=== PATIENT | male | born 1990 | race American Indian/Alaskan Native ===

== ENCOUNTER 2017-03-12 16:06 | Emergency (ER) | payer OTHER ==
[2017-03-12] MEDS ORDERED: DILAUDID IV ONE (17:06)
[2017-03-12] MEDS ORDERED: ZOFRAN IV ONE (17:06)
[2017-03-12] MEDS ORDERED: TORADOL IV ONE (17:06)
[2017-03-12] MEDS ORDERED: NACL 0.9% 1000 ML 1,000 ML IV ONE (17:06)
--- NOTE | 2017-03-12 17:07 | Emergency Department Report ---
ED General Adult HPI - General Chief complaint: Abdominal Pain Stated complaint: RT FLANK PAIN/POSS STONE Time Seen by Provider: 03/12/17 17:01 Source: patient, EMS (ems notes not available at time of chart dictation), RN notes reviewed Mode of arrival: Stretcher Limitations: No Limitations - History of Present Illness Initial comments: This is a 26-year-old male. He is previously unknown to me. He has a past medical history of kidney stones. His last episode of renal colic was in 2011. He presents to the ER with right flank pain. There is no trauma. No vomiting. No fevers or chills. No chest pain or shortness of breath. No right lower quadrant pain. No testicular pain. No irritative urinary symptoms. He reports his symptoms are similar to prior episodes of renal colic. The pain is sharp, and has no exacerbating or relieving factors. He indicates the pain does not radiate anywhere. There is no leg pain. There is no leg swelling. No recent trips greater than 4 hours. No recent hospital admissions. Patient describes complete unlimited exercise tolerance. -: Gradual Location: back, abdomen Quality: aching Consistency: constant Improves with: none Worsens with: none Associated Symptoms: denies: confusion, chest pain, cough, diaphoresis, fever/ chills, headaches, loss of appetite, malaise, shortness of breath, syncope, weakness - Related Data Previous Rx's Medication Instructions Recorded Last Taken Type Ketorolac [Toradol] 10 mg PO Q6H PRN #20 tablet 03/12/17 Unknown Rx Ondansetron [Zofran Odt] 4 mg PO QID PRN #20 tab.rapdis 03/12/17 Unknown Rx Tamsulosin [Flomax] 0.4 mg PO QDAY #30 cap 03/12/17 Unknown Rx oxyCODONE [Roxicodone] 5 mg PO Q6HR PRN #15 tablet 03/12/17 Unknown Rx Allergies Allergy/AdvReac Type Severity Reaction Status Date / Time No Known Allergies Allergy Unverified 03/12/17 16:20 ED Review of Systems ROS: Stated complaint: RT FLANK PAIN/POSS STONE Other details as noted in HPI Constitutional: denies: fever Eyes: denies: vision change ENT: denies: epistaxis Respiratory: denies: cough Cardiovascular: denies: chest pain Gastrointestinal: abdominal pain Genitourinary: as per HPI. denies: testicular pain Musculoskeletal: back pain Skin: denies: lesions Neurological: denies: headache, weakness ED Past Medical Hx - Past Medical History Previous Medical History?: Yes Hx Kidney Stones: Yes - Surgical History Past Surgical History?: No - Social History Smoking Status: Current Every Day Smoker Substance Use Type: None - Medications Home Medications: Home Medications Medication Instructions Recorded Confirmed Last Taken Type Ketorolac [Toradol] 10 mg PO Q6H PRN #20 tablet 03/12/17 Unknown Rx Ondansetron [Zofran Odt] 4 mg PO QID PRN #20 tab.rapdis 03/12/17 Unknown Rx Tamsulosin [Flomax] 0.4 mg PO QDAY #30 cap 03/12/17 Unknown Rx oxyCODONE [Roxicodone] 5 mg PO Q6HR PRN #15 tablet 03/12/17 Unknown Rx ED Physical Exam - General Limitations: No Limitations General appearance: alert, in distress - Head Head exam: Present: atraumatic, normocephalic - Eye Eye exam: Present: normal appearance, EOMI. Absent: nystagmus - ENT ENT exam: Present: normal exam, normal orophraynx, mucous membranes moist, normal external ear exam - Neck Neck exam: Present: normal inspection, full ROM. Absent: tenderness, meningismus - Respiratory Respiratory exam: Present: normal lung sounds bilaterally. Absent: respiratory distress, wheezes, rales, rhonchi, stridor, chest wall tenderness, accessory muscle use, decreased breath sounds, prolonged expiratory - Cardiovascular Cardiovascular Exam: Present: regular rate, normal rhythm, normal heart sounds. Absent: bradycardia, tachycardia, irregular rhythm, systolic murmur, diastolic murmur, rubs, gallop - GI/Abdominal GI/Abdominal exam: Present: soft, normal bowel sounds. Absent: distended, tenderness, guarding, rebound, rigid, pulsatile mass - Rectal Rectal exam: Present: deferred - Extremities Exam Extremities exam: Present: normal inspection, full ROM, normal capillary refill. Absent: tenderness, pedal edema, joint swelling, calf tenderness - Back Exam Back exam: Present: normal inspection, full ROM, paraspinal tenderness. Absent : tenderness, CVA tenderness (R), CVA tenderness (L), muscle spasm - Neurological Exam Neurological exam: Present: alert, oriented X3, normal gait, other (Extraocular movements intact. Tongue midline. No facial droop. Facial sensation intact to light touch in the V1, V2, V3 distribution bilaterally. 5 and 5 strength in 4 extremities.. Sensation is intact to light touch in 4 extremities.). Absent : motor sensory deficit - Psychiatric Psychiatric exam: Present: normal affect, normal mood - Skin Skin exam: Present: warm, dry, intact, normal color. Absent: rash ED Course Vital Signs 03/12/17 03/12/17 16:18 17:16 Temperature 98.3 F Pulse Rate 65 78 Respiratory 18 18 Rate Blood Pressure 135/79 Blood Pressure 111/75 [Left] O2 Sat by Pulse 100 100 Oximetry - Reevaluation(s) Reevaluation #1: 03/12/17 17:13 Differential diagnosis: Renal colic, urinary tract infection, pancreatitis, hepatitis Assessment and plan: 26-year-old male with flank pain, reported history of renal colic. He indicates that these symptoms feel similar to prior episodes of renal colic. He appears somewhat uncomfortable. He denies testicular pain. There are no pulmonary and blister DVT risk factors, he is low risk by was criteria, he has perc negative. Given the young age, classic history, the patient will be treated symptomatically. He was originally given Toradol by EMS. He still having pain after hydromorphone, we will obtain a noncontrast CT scan of the abdomen and pelvis. Reevaluation #2: 03/12/17 18:46 Patient reassessed multiple times by me while in the emergency department. He feels much improved after pain medication. He is tolerating liquid feeds. Urinalysis not consistent with urinary tract infection, but suggestive of renal colic. Patient will be discharged with pain medication, nausea medication, tamsulosin, instructions to follow up with outpatient urology. Return precautions were extensively reviewed. Reevaluation #3: 03/12/17 19:10 just prior to discharge, the patient stated that he is having intermittent dizziness when he bends over, this has been happening for months. His repeat neurologic examination is unremarkable. Extraocular movements intact. Tongue midline. No facial droop. Facial sensation intact to light touch in the V1, V2, V3 distribution bilaterally. 5 and 5 strength in 4 extremities.. Sensation is intact to light touch in 4 extremities. Gait within normal limits. There is no pass pointing, there is normal heel to guallpa, there is negative pronator drift, there is negative Romberg. EKG was unremarkable. The patient can follow-up with his primary care doctor about this, this is most likely vagal or orthostatic. ED Medical Decision Making - Lab Data Result diagrams: 03/12/17 17:22 03/12/17 17:22 Vital Signs 03/12/17 16:18 Temperature 98.3 F Pulse Rate 65 Respiratory 18 Rate Blood Pressure 135/79 O2 Sat by Pulse 100 Oximetry - EKG Data -: EKG Interpreted by Me EKG shows normal: sinus rhythm, axis, intervals, QRS complexes, ST-T waves - EKG Data Interpretation: normal EKG Critical care attestation.: If time is entered above; I have spent that time in minutes in the direct care of this critically ill patient, excluding procedure time. ED Disposition Clinical Impression: Acute flank pain, Hematuria Disposition: DISCHARGED TO HOME OR SELFCARE Is pt being admited?: No Does the pt Need Aspirin: No Condition: Stable Instructions: Renal Colic (ED) Additional Instructions: Take the pain medication, nausea medication as directed. If taking oxycodone, do not drive, consume alcohol, or make important decisions. Follow up with the listed urology specialist within the next 7-10 days. Return to the ER right away with new pain, worsened pain, migration of pain, fevers or chills, intractable nausea or vomiting or inability to tolerate liquid feeds. Dr. Sierra is a local urology specialist. Prescriptions: Ketorolac [Toradol] 10 mg PO Q6H PRN #20 tablet PRN Reason: Pain Ondansetron [Zofran Odt] 4 mg PO QID PRN #20 tab.rapdis PRN Reason: Nausea oxyCODONE [Roxicodone] 5 mg PO Q6HR PRN #15 tablet PRN Reason: Pain Tamsulosin [Flomax] 0.4 mg PO QDAY #30 cap Referrals: PRIMARY CARE, [Primary Care Provider] - 3-5 Days EZRA SIERRA MD [Staff Physician] - 3-5 Days Forms: Work/School Release Form(ED)
[2017-03-12 17:17] VITALS: BP 111/75
[2017-03-12 17:38] LABS: Hemoglobin 12.9 gm/dl (11.8-15.2); Mean Corpuscular HGB Conc 31 % (32-34); Mean Corpuscular Volume 75 fl (84-94); Platelet Count 200 K/mm3 (140-440); Red Blood Count 5.49 M/mm3 (3.65-5.03); Red Cell Distribution Width 14.9 % (13.2-15.2); White Blood Count 12.8 K/mm3 (4.5-11.0)
[2017-03-12 17:54] LABS: Mean Corpuscular Hemoglobin 23 pg (28-32)
[2017-03-12 18:03] LABS: Alanine Aminotransferase 16 units/L (7-56); Albumin 4.4 g/dL (3.9-5); Albumin/Globulin Ratio 1.5 %; Alkaline Phosphatase 58 units/L (35-129); Anion Gap 16 mmol/L; BUN/Creatinine Ratio 11.81; Blood Urea Nitrogen 13 mg/dL (9-20); Calcium 9.3 mg/dL (8.4-10.2); Carbon Dioxide 28 mmol/L (22-30); Chloride 100.9 mmol/L (98-107); Glucose 91 mg/dL (75-100); Lipase 19 units/L (13-60); Potassium 4.8 mmol/L (3.6-5.0); Sodium 140 mmol/L (137-145); Total Protein 7.3 g/dL (6.3-8.2)
[2017-03-12 18:10] LABS: Bilirubin,Direct < 0.2 mg/dL (0-0.2); Bilirubin,Indirect 0.1 mg/dL
[2017-03-12 18:25] LABS: Bilirubin,Urine NEG (Negative); Blood,Urine MOD (Negative); Ketones,Urine NEG (Negative); Leukocyte Esterase,Urine TR (Negative); Mucus,Urine 2+ /HPF; Nitrite,Urine NEG (Negative)
== END 2017-03-12 19:25 | disposition home or self-care (01) ==
LOC: ED 16:06
DX: R31.9 Hematuria, unspecified (principal); R10.9 Unspecified abdominal pain; F17.200 Nicotine dependence, unspecified, uncomplicated
CPT/HCPCS: 36415; 80048; 80074; 81001; 83690; 85027; 93005; 93010; 96374; 96375; 99284; J1170; J2405; J7030

== ENCOUNTER 2017-05-20 22:04 | Emergency (ER) | payer OTHER ==
[2017-05-20 23:25] LABS: Eosinophils % (Auto) 0.2 % (0.0-4.3); Hematocrit 41.1 % (35.5-45.6); Hemoglobin 12.9 gm/dl (11.8-15.2); Mean Corpuscular HGB Conc 31 % (32-34); Mean Corpuscular Volume 76 fl (84-94); Platelet Count 173 K/mm3 (140-440); Red Blood Count 5.44 M/mm3 (3.65-5.03); Red Cell Distribution Width 15.3 % (13.2-15.2); White Blood Count 7.3 K/mm3 (4.5-11.0)
[2017-05-20 23:30] LABS: Mean Corpuscular Hemoglobin 24 pg (28-32)
[2017-05-20 23:43] LABS: Anion Gap 17 mmol/L; Blood Urea Nitrogen 11 mg/dL (9-20); Calcium 9.5 mg/dL (8.4-10.2); Carbon Dioxide 28 mmol/L (22-30); Chloride 97.2 mmol/L (98-107); Creatine Kinase 133 units/L (55-170); Glucose 94 mg/dL (75-100); Potassium 3.9 mmol/L (3.6-5.0); Sodium 138 mmol/L (137-145)
[2017-05-21] LABS: Bilirubin,Urine NEG (Negative); Blood,Urine NEG (Negative); Ketones,Urine NEG (Negative); Leukocyte Esterase,Urine NEG (Negative); Mucus,Urine FEW /HPF; Nitrite,Urine NEG (Negative); Protein,Urine <15 mg/dL mg/dL (Negative); Urobilinogen,Urine < 2.0 mg/dL (<2.0)
[2017-05-21 00:55] VITALS: BP 135/85
[2017-05-21] MEDS ORDERED: NACL 0.9% 1000 ML 1,000 ML IV ONE (02:07)
--- NOTE | 2017-05-21 02:13 | Emergency Department Report ---
ED Dizziness HPI - General Chief Complaint: Dizziness Stated Complaint: DIZZINESS Time Seen by Provider: 05/21/17 01:52 Source: patient Mode of arrival: Ambulatory Limitations: No Limitations - History of Present Illness Initial Comments: 27-year-old male presents to the emergency department complaining of dizziness. Patient states that all day today, he felt lightheaded and dizzy whenever he would stand up after bending over. His symptoms would last only for a few seconds before spontaneously resolving. He has not loss consciousness. He denies pain. He also denies nausea, vomiting, or diarrhea. There are no other complaints. MD Complaint: lightheadedness -: Gradual, This morning Timing: sudden onset Description: lightheadedness History of Same: No History of Trauma: No Severity: mild Improves With: rest Worsens With: position Associated Symptoms: denies other symptoms - Related Data Home Medications Medication Instructions Recorded Confirmed Last Taken No Known Home Medications [No 05/21/17 05/21/17 Unknown Reported Home Medications] Allergies Allergy/AdvReac Type Severity Reaction Status Date / Time No Known Allergies Allergy Unverified 03/12/17 16:20 ED Review of Systems ROS: Stated complaint: DIZZINESS Other details as noted in HPI Comment: All other systems reviewed and negative Cardiovascular: other (lightheadedness) ED Past Medical Hx - Past Medical History Previous Medical History?: Yes Hx Kidney Stones: Yes - Surgical History Past Surgical History?: No - Family History Family history: no significant - Social History Smoking Status: Current Every Day Smoker Substance Use Type: Alcohol - Medications Home Medications: Home Medications Medication Instructions Recorded Confirmed Last Taken Type No Known Home Medications [No 05/21/17 05/21/17 Unknown History Reported Home Medications] ED Physical Exam - General Limitations: No Limitations General appearance: alert, in no apparent distress - Head Head exam: Present: atraumatic, normocephalic - Eye Eye exam: Present: normal appearance, PERRL, EOMI - ENT ENT exam: Present: normal exam, normal orophraynx, mucous membranes moist - Neck Neck exam: Present: normal inspection, full ROM. Absent: tenderness - Respiratory Respiratory exam: Present: normal lung sounds bilaterally. Absent: respiratory distress - Cardiovascular Cardiovascular Exam: Present: regular rate, normal rhythm, normal heart sounds - GI/Abdominal GI/Abdominal exam: Present: soft, normal bowel sounds. Absent: distended, tenderness - Extremities Exam Extremities exam: Present: normal inspection, full ROM. Absent: tenderness - Back Exam Back exam: Present: normal inspection, full ROM. Absent: tenderness - Neurological Exam Neurological exam: Present: alert, oriented X3. Absent: motor sensory deficit - Skin Skin exam: Present: warm, dry, intact ED Course Vital Signs 05/20/17 05/21/17 05/21/17 22:24 00:42 00:54 Temperature 99.2 F Pulse Rate 86 75 Pulse Rate [ 71 Lying] Pulse Rate [ 65 Sitting] Pulse Rate [ 68 Standing] Respiratory 20 19 Rate Blood Pressure 138/90 Blood Pressure 135/85 [Lying] Blood Pressure 145/94 [Sitting] Blood Pressure 150/96 [Standing] O2 Sat by Pulse 100 98 Oximetry ED Medical Decision Making - Lab Data Result diagrams: 05/20/17 23:12 05/20/17 23:12 - EKG Data -: EKG Interpreted by Ar EKG shows normal: sinus rhythm, axis, intervals, QRS complexes, ST-T waves Rate: normal - EKG Data When compared to previous EKG there are: no significant change Interpretation: normal EKG, unchanged when compared t (03/12/2017) - Medical Decision Making Lab results reviewed and discussed with the patient. He shouldn't be given IV fluids. He'll then be discharged home to follow-up with his primary care physician. - Differential Diagnosis dehydration, orthostasis, electrolyte abnormality Critical care attestation.: If time is entered above; I have spent that time in minutes in the direct care of this critically ill patient, excluding procedure time. ED Disposition Clinical Impression: Orthostatic lightheadedness Disposition: DC-01 TO HOME OR SELFCARE Is pt being admited?: No Condition: Stable Instructions: Dehydration (ED) Referrals: PRIMARY CARE, [Primary Care Provider] - 3-5 Days Time of Disposition: 02:16
== END 2017-05-21 03:06 | disposition home or self-care (01) ==
LOC: ED 22:04
DX: R42 Dizziness and giddiness (principal); F17.210 Nicotine dependence, cigarettes, uncomplicated
CPT/HCPCS: 36415; 80048; 81001; 82550; 85025; 93005; 93010; 96360; 99283; J7030

== ENCOUNTER 2018-12-23 04:58 | Emergency (ER) | payer OTHER ==
[2018-12-23 05:08] VITALS: BP 137/86
[2018-12-23] MEDS ORDERED: FUL-GLO OP ONE ×2 (05:22→05:26)
[2018-12-23] MEDS ORDERED: BSS OU ONE (05:22)
[2018-12-23] MEDS ORDERED: TETRACAINE 0.5% OU ONE (05:23)
[2018-12-23] MEDS ORDERED: TETRACAINE 0.5% ONE (05:26)
[2018-12-23] MEDS ORDERED: BSS ONE (05:26)
--- NOTE | 2018-12-23 07:44 | Emergency Department Report ---
Eye Injury/Foreign Body - HPI Duration: 1 Day Eye Location: Right Severity: Mild Tetanus Status: Up to Date Eye Symptoms: Eye Pain: No, Blurred Vision: Yes, Eye Redness: Yes, Grinding/Hammering Metal: No, Contact Lens Use: No, Recalls Injury: Yes, Photophobia: No Other History: This is a 28-year-old -[place] male presents with right eye redness since yesterday. Patient states when he woke up yesterday morning and he felt fine but when he got to work he started having blurry vision on the right eye. Patient states it lasted for few hours and resolved. When he arrived home he initially felt okay but around 9 or 10 PM blurry vision or return with redness to right eye. Patient states it is not painful but there is irritation when he blinked. He denies grinding sensation, discharge, or pain. ED Review of Systems ROS: Stated complaint: RIGHT EYE IRRITATION/BLURRY Other details as noted in HPI Constitutional: denies: chills, fever Eyes: vision change (right eye) ENT: denies: ear pain, throat pain Respiratory: denies: cough, shortness of breath, wheezing Cardiovascular: denies: chest pain, palpitations Skin: denies: rash, lesions Neurological: denies: headache, weakness, paresthesias Psychiatric: denies: anxiety, depression ED Past Medical Hx - Past Medical History Previous Medical History?: No Hx Kidney Stones: Yes - Surgical History Past Surgical History?: No - Social History Smoking Status: Current Every Day Smoker Substance Use Type: Alcohol - Medications Home Medications: Home Medications Medication Instructions Recorded Confirmed Last Taken Type Erythromycin [Erythromycin Ophth 10 applic OD Q4H #1 tube 12/23/18 Unknown Rx Oint] Eye Injury Exam - Exam General: Vital signs noted. No distress. Alert and acting appropriately. - Visual Acuity Left Vision Acuity Degree: 20/40 Eye Exam: Right Injection, Right Fluorescein Uptake, Right Fluorescein Uptake (slit lamp), Right Cell/Flare (slit lamp) (anterior cells visualized with a vertical line right of iris), Both EOMI, Neither Chemosis, Neither Abnormal Pupil, Neither Eye Foreign Body, Neither Lid Foreign Body, Neither Mucous Discharge, Neither Purulent Discharge, Neither Corneal Edema, Neither Photophobia Right Vision Acuity Degree: Unable to see Bilateral Vision Acuity Degree: 20/40 ED Course Vital Signs 12/23/18 12/23/18 05:01 05:07 Temperature 98.6 F Pulse Rate 69 Respiratory 18 18 Rate Blood Pressure 137/86 [Right] O2 Sat by Pulse 100 100 Oximetry ED Medical Decision Making - Medical Decision Making This is a 28-year-old male that presents with blurry vision and irritation to right eye for one day. Patient is stable and was examined by me. Vitals normal. Physical assessment susceptible of corneal abrasion of right eye. Start erythromycin ointment. Instructed to follow-up with stick feeder within 24 hours. Patient agreed with plan. Discharged home in stable condition. Follow up with PCP in 24-72 hours. Critical care attestation.: If time is entered above; I have spent that time in minutes in the direct care of this critically ill patient, excluding procedure time. ED Disposition Clinical Impression: Blurry vision, right eye Corneal abrasion, right Qualifiers: Encounter type: initial encounter Qualified Code(s): S05.01XA - Injury of conjunctiva and corneal abrasion without foreign body, right eye, initial encounter Disposition: - TO HOME OR SELFCARE Is pt being admited?: No Does the pt Need Aspirin: No Condition: Stable Instructions: Corneal Abrasion (ED) Additional Instructions: Use cool compress to each eye to decrease swelling. Avoid rubbing or touching eyes, because rubbing eyes can cause worsening symptoms. Take medication as prescribed. Follow-up with stick feeder in 24 hours. Return to ER if swelling don't improve or difficulty breathing after 2 days of medication. Prescriptions: Erythromycin [Erythromycin Ophth Oint] 10 applic OD Q4H #1 tube Referrals: [facility] MD NICOLE [Primary Care Provider] - 3-5 Days WADE PATRICK MD [Staff Physician] - 3-5 Days [facility] [Provider Group] - 3-5 Days Forms: Work/School Release Form(ED) Time of Disposition: 07:51
== END 2018-12-23 08:09 | disposition home or self-care (01) ==
LOC: ED 04:58
DX: S05.01XA Injury of conjunctiva and corneal abrasion without foreign body, right eye, initial encounter (principal); F17.200 Nicotine dependence, unspecified, uncomplicated; Z87.442 Personal history of urinary calculi